=== PATIENT | female | born 1960 | race Caucasian/White ===

== ENCOUNTER 2016-06-04 07:29 | Day surgery (SDC) | payer OTHER ==
[~2016-06-04] VITALS: Ht 167.6 cm; Wt 63.5 kg
[~2016-06-04 07:29] MED LIST: ANTIBIOTIC PO; FILG300S2 SQ; GABA-533 PO; LORA0.5T2 PO; SODIUM CHLORIDE 0.9% 1,000 ML IV ONE; TRAM50TA4 PO
[2016-06-04] MEDS ORDERED: SODIUM CHLORIDE 0.9% 1,000 ML IV ONE (07:58)
[2016-06-04] MEDS ORDERED: LIDOCAINE HCL/PF 1% 30 ML VIAL ONE (10:08)
[2016-06-04] MEDS ORDERED: FentaNYL CITRATE-PF 100 MCG/2 ML VIAL ONE (11:11)
== END 2016-06-04 12:30 | disposition home or self-care (01) ==
LOC: SDS 07:29 → EDSTATUS 08:00 → SDS 12:30
PROVIDERS: ATTEND Radiology Diagnostic Radiology
DX: M89.8X1 Other specified disorders of bone, shoulder (principal); C48.2 Malignant neoplasm of peritoneum, unspecified; C56.9 Malignant neoplasm of unspecified ovary; C50.911 Malignant neoplasm of unspecified site of right female breast; Z88.8 Allergy status to other drugs, medicaments and biological substances; Z98.890 Other specified postprocedural states; Z90.710 Acquired absence of both cervix and uterus; Z92.21 Personal history of antineoplastic chemotherapy
CPT/HCPCS: 20983; J3010; J3490; J7030; 76942